=== PATIENT | male | born 1970 | race Hispanic/Latino ===

== ENCOUNTER 2023-10-24 05:39 | Emergency (ER) | payer OTHER, MEDICAID ==
[~2023-10-24] VITALS: Ht 165.1 cm; Wt 81.6 kg
[2023-10-24 06:16] VITALS: BP 131/79; PULSE 59; RESP 18; O2SAT 98
[2023-10-24] MEDS: IBUPROFEN 400 MG TABLET PO ONE (08:03)
[2023-10-24] MEDS: ACETAMINOPHEN 500 MG TABLET PO ONE (08:04)
== END 2023-10-24 09:45 | disposition home or self-care (01) ==
LOC: EDH 05:39
DX: M25.562 Pain in left knee (principal)
CPT/HCPCS: 73562

== ENCOUNTER 2023-10-28 01:34 | Emergency (ER) | payer OTHER, MEDICAID ==
[~2023-10-28] VITALS: Ht 170.2 cm; Wt 78.5 kg
[2023-10-28] MEDS ORDERED: 0.9%NACL 1000ML 1,000 ML IV ONE (03:00)
[2023-10-28 05:22] VITALS: BP 132/81; PULSE 88; RESP 16; O2SAT 99
[2023-10-28] MEDS: KETOROLAC 30MG VIAL (30MG/ML) IM ONE (05:40)
== END 2023-10-28 06:07 | disposition home or self-care (01) ==
LOC: EDH 01:34
DX: M25.562 Pain in left knee (principal); F32.A Depression, unspecified; Z98.890 Other specified postprocedural states
CPT/HCPCS: 99284; 71045; 73562; 96372; 93005; J1885; 96374

== ENCOUNTER 2023-10-29 01:43 | Emergency (ER) | payer OTHER, MEDICAID ==
[~2023-10-29] VITALS: Ht 170.2 cm; Wt 80.7 kg
[2023-10-29] MEDS: LACTATED RINGERS 1000ML 1,368 ML IV ONE (02:09)
[2023-10-29] MEDS: PROCHLORPERAZINE 10MG/2ML INJ IV ONE (02:10)
[2023-10-29] MEDS: DiphenhydrAMINE HCL 50 MG/ML VIAL IM ONE (02:10)
[2023-10-29] MEDS: KETOROLAC 30MG VIAL (30MG/ML) IM ONE (02:10)
[2023-10-29 03:26] VITALS: BP 138/64; PULSE 88; RESP 16; O2SAT 96
== END 2023-10-29 05:11 | disposition home or self-care (01) ==
LOC: EDH 01:43
DX: G43.909 Migraine, unspecified, not intractable, without status migrainosus (principal); F32.A Depression, unspecified
CPT/HCPCS: 99284; 96374; 96361; 96372 ×2; J7120; J1200; J0780; J1885

== ENCOUNTER 2023-12-17 16:00 | Emergency (ER) | payer OTHER, MEDICAID ==
[~2023-12-17] VITALS: Ht 170.2 cm; Wt 80.7 kg
--- NOTE | 2023-12-17 16:24 | HMCIMG ---
KNEE 3VWS LT REASON: PAIN TECHNIQUE: 3 views were obtained. FINDINGS: There is no evidence of fracture or dislocation. There is no joint effusion. The soft tissues appear unremarkable. There is no evidence of a radiopaque foreign body. IMPRESSION: No acute findings.
--- NOTE | 2023-12-17 16:45 | NUR ---
PT REMOVED HIS MONITORING EQUIPMENT
--- NOTE | 2023-12-17 18:40 | NUR ---
STILL PENDING DISPOSITION
--- NOTE | 2023-12-17 18:42 | ERN ---
ED Note History of Present Illness Stated Complaint: KNEE PAIN Chief Complaint: Knee Injury/Swelling Time Seen by MD: 16:05 Dictation: This 52-year-old male with chronic left knee pain activated EMS because of increased knee pain today. He states the pain comes and goes. He normally walks with a cane. He denies fever, redness or swelling, numbness or tingling. The pain is exacerbated by flexion extension. The patient is homeless. He denies cigarettes and alcohol Allergies: Coded Allergies: No Known Allergies (Unverified Allergy, Unknown, 10/24/23) Past Medical History Past Medical History: No Pertinent History Surgical History: None Surgical History Other: REPORTS CRANIOTOMY Review of System Dictation All pertinent systems reviewed, negative except as documented in the HPI The ROS is obtained from patient GENERAL/CONSTITUTIONAL: Negative except as documented in HPI. ENT: Negative except as documented in HPI. CARDIOVASCULAR: Negative except as documented in HPI. RESPIRATORY: Negative except as documented in HPI. GASTROINTESTINAL: Negative except as documented in HPI. GENITOURINARY: Negative except as documented in HPI. MUSCULOSKELETAL: Negative except as documented in HPI. SKIN: Negative except as documented in HPI. NEUROLOGIC: Negative except as documented in HPI. Initial Vital Sign VS Vital Signs Date Time Temp Pulse Resp B/P (MAP) Pulse Ox O2 Delivery O2 Flow Rate FiO2 12/17/23 16:01 98.2 102 19 145/91 97 Room Air 0 12/17/23 16:04 21 Physical Exam Dictation VITAL SIGNS: note is made of triage vital signs CONSTITUTIONAL: This is a comfortable patient who is sound asleep. I had to awaken him for the exam HEAD: Normocephalic, Atraumatic. RESPIRATORY: No respiratory distress ABDOMEN: Abdomen soft and nontender SKIN: Warm, dry, with normal turgor. Capillary refill less than 3 seconds. Normal color.No rash. No cellulitis or abscess. No evidence of acute injury. MS/Extremity: There is no calf tenderness. The patient's left knee is without redness, swelling or deformity. He has some mild pain with flexion. AP, PA lateral and medial stressing are normal.. There are no deformities. NEURO: The patient is sleepy but follows commands. He is moving all four extremities. PSYCH: Patient has been sleeping since arrival in the emergency department. Results (Laboratory/Radiology) X-RAY Comment: Institution : [facility] Accession No. : [id number] Patient : SAVANNAH LAWLER Creator : Urszula Mccain Dictator : Urszula Mccain Accountant Cost : Frame Coverer : URSZULA MCCAIN Approver2 : Study : KNEE 3VWS LT Study Date : 12/17/2023 15:54:38 Report Date : 12/17/2023 16:22:06 [facility] [address] [place] [address] IMAGING REPORT Signed PATIENT: NURIS NUÑEZ MR#: [id number] : 1970 SEX: M AGE: 52 LOCATION: [facility] ORDER 1610 STATUS: [facility] ER REPORT#: [id number] SERVICE 1609 REASON: PAIN ORDERING PHYSICIAN: SAMMY GOLD MD PROCEDURE: KNEE 3V LT - KNEE 3VWS LT KNEE 3VWS LT REASON: PAIN TECHNIQUE: 3 views were obtained. FINDINGS: There is no evidence of fracture or dislocation. There is no joint effusion. The soft tissues appear unremarkable. There is no evidence of a radiopaque foreign body. IMPRESSION: No acute findings. DICTATED BY: URSZULA MCCAIN MD DATE: 12/17/23 162 ELECTRONICALLY SIGNED BY: URSZULA MCCAIN MD DATE: 12/17/231623 ED Course ED Course Orders Procedure Category Date Status Time Knee 3vws Lt RAD 12/17/23 Resulted 16:09 Acetaminophen 500mg PHA 12/17/23 In Process Tab (Tylenol 500mg T 17:00 Lidocaine (Lidoderm PHA 12/17/23 In Process Patch 5%) 17:00 *Nursing CPOE 12/17/23 Transmitted Communication: 17:00 Current Medications Medications (Trade) Dose Ordered Sig/Liliana Route PRN Reason Start Time Stop Time Status Last Admin Dose Admin Acetaminophen (TYLenol 500MG TAB) 1,000 mg ONCE ONCE PO 12/17/23 17:00 12/17/23 17:01 Lidocaine (Lidoderm Patch 5%) 1 patch ONCE ONCE TP 12/17/23 17:00 12/17/23 17:01 Vital Signs Date Time Temp Pulse Resp B/P (MAP) Pulse Ox O2 Delivery O2 Flow Rate FiO2 12/17/23 17:11 86 16 146/87 97 Room Air* 0 21 12/17/23 16:04 98.2 102 19 145/91 97 Room Air* 0 21 12/17/23 16:01 98.2 102 19 145/91 97 Room Air 0 Medical Decision Making MDM INITIAL IMPRESSION Initial history and physical concerning for recurrent knee pain No evidence of infection or injury Contributing medical problems: None I have reviewed the triage nursing notes and vital signs. The patient is afebrile with acceptable oxygen saturation, heart rate and blood pressure. Initial plan: X-ray, Medication and discharge DATA REVIEW I have reviewed additional NN, repeat VS, and monitoring where indicated. Heart rate, blood pressure, and O2 saturation are acceptable. [place] diagnostic results: X-ray is negative for acute findings Other independent historian: none Review of external data: No recent ED visits ED COURSE Interventions: The patient received Tylenol and a Lidoderm patch. He has continued to sleep comfortably in the emergency department DISPOSITION Final diagnostic impression: Acute exacerbation of chronic knee pain without evidence of infection or acute trauma I discussed my findings, clinical impression and treatment recommendations with the patient. I have reviewed the social factors contributing to the patient's presentation and disposition planning. My final plan for disposition was made based upon clinical findings, response to treatment and discussion with the patient regarding management options. Hospitalization is not indicated due to low risk of short term progression, complication, morbidity or mortality related to the current diagnosis At the time of discharge, the vital signs are within acceptable limits. Repeat examination: No significant new changes. The discharge treatment plan includes recommendations for Dmitry wrap, Tylenol and Lidoderm patches Questions were invited and answered in layman's terms. I have emphasized my follow-up recommendations and reviewed ED return precautions. I have answered any questions in layman's terms. The patient understands that they will have to arrange for out-patient follow-up for recheck of today's condition. The patient is stable and appropriate for discharge from the ED. This dictation was prepared using [employer] voice recognition software. Occasional voice recognition errors may occur. When identified, these errors have been corrected. While every attempt is made to correct errors during dictation, errors may still exist. DX & DISP Disposition: Discharge Decision to Admit Date: Dec 17, 2023 Decision to Admit Time: 18:42 Departure Impression: Primary Impression: Knee pain Condition: Stable Additional Instructions: Use the Dmitry wrap to help stabilize your knee. Use [id number] Tylenol as needed for pain. You can use [id number] Lidoderm patches once a day if they are helpful. Follow up with family physician of your choice Referrals: SELF,REFERRAL (PCP) Time of Disposition: 18:42 SAMMY GOLD MD Dec 17, 2023 18:42
[2023-12-17] MEDS: LIDOCAINE 5% TOPICAL PATCH TP ONE (19:07)
[2023-12-17] MEDS: acetaMINOPHEN 500 MG TABLET PO ONE (19:09)
--- NOTE | 2023-12-17 19:14 | NUR ---
ALDAIR WRAP TO THE LEFT KNEE WITH LIDODERM PATCH BENEATH PER ED MD REQUEST.
--- NOTE | 2023-12-17 19:16 | NUR ---
REPORT TO LASHONDA JHA. PENDING D/C TO HOME BUT PT FROM [facility]
[2023-12-17 19:25] VITALS: BP 138/90; PULSE 79; RESP 18; TEMP 98.2; O2SAT 97
--- NOTE | 2023-12-17 19:28 | NUR ---
DISCHARGED AT THIS TIME.
== END 2023-12-17 19:28 | disposition home or self-care (01) ==
LOC: EDH 16:00
DX: M25.562 Pain in left knee (principal); Z98.890 Other specified postprocedural states; X58.XXXA Exposure to other specified factors, initial encounter; Y93.89 Activity, other specified; Y92.89 Other specified places as the place of occurrence of the external cause; Y99.8 Other external cause status
CPT/HCPCS: 73562

== ENCOUNTER 2023-12-21 19:56 | Emergency (ER) | payer OTHER, MEDICAID ==
[~2023-12-21] VITALS: Ht 170.2 cm; Wt 80.7 kg
[2023-12-21 20:20] LABS: BASOPHILS # (AUTO) 0.05 K/uL (0.00-0.20); BASOPHILS % (AUTO) 1.1 % (0.0-5.0); EOSINOPHILS # (AUTO) 0.35 K/uL (0.00-0.70); EOSINOPHILS % (AUTO) 7.9 % (0.0-8.0); HEMATOCRIT 43.4 % (42-54); IMMATURE GRANULOCYTE ABSOLUTE 0.01 K/uL (0-1); LYMPHOCYTES % (AUTO) 21.5 % (21.0-51.0); MEAN CORPUSCULAR HEMOGLOBIN 32.9 pg (27.0-33.0); MEAN CORPUSCULAR HGB CONC 35.7 g/dL (32.0-36.0); MEAN CORPUSCULAR VOLUME 92.1 fL (79-99); MONOCYTES # (AUTO) 0.5 K/uL (0.1-1.0); NEUTROPHILS # (AUTO) 2.5 K/uL (1.8-7.7); NEUTROPHILS % (AUTO) 57.3 % (40.0-77.0); PLATELET COUNT (AUTO) 112 K/uL (130-400); RED BLOOD CELL COUNT(AUTO) 4.71 MIL/uL (4.50-6.20); RED CELL DISTRIBUTION WIDTH 12.7 % (11.0-15.5); WHITE BLOOD COUNT (AUTO) 4.4 K/uL (4.8-10.8)
[2023-12-21 20:39] LABS: POTASSIUM 3.8 mmol/L (3.5-5.1)
[2023-12-21 20:50] VITALS: TEMP 98
[2023-12-21] MEDS: FAMOTIDINE 20MG VIAL IV ONE (21:01)
[2023-12-21] MEDS: 0.9%NACL 1000ML 1,000 ML IV ONE (21:02)
[2023-12-21] MEDS: INSULIN humuLIN R 100 UNIT/ML 3ML IV STA (21:03)
[2023-12-21] MEDS ORDERED: METF-446 PO (22:03)
[2023-12-21 23:02] VITALS: BP 141/85; PULSE 85; RESP 18; O2SAT 97
[2023-12-21] MEDS ORDERED: METF-527 PO (23:11)
== END 2023-12-21 23:13 | disposition home or self-care (01) ==
LOC: EDH 19:56
DX: R09.89 Other specified symptoms and signs involving the circulatory and respiratory systems (principal); E11.9 Type 2 diabetes mellitus without complications; R05.9 Cough, unspecified
CPT/HCPCS: 99284; 96374; 96361; 96375; 80048; 85025; 82948; 36415; J1815; J3490; J7030

== ENCOUNTER 2023-12-23 01:57 | Emergency (ER) | payer OTHER, MEDICAID ==
[~2023-12-23] VITALS: Ht 170.2 cm; Wt 76.2 kg
[~2023-12-23 01:57] MED LIST: METF-446 PO; METF-527 PO
[2023-12-23 03:03] VITALS: BP 134/75; PULSE 76; RESP 16; TEMP 98.6; O2SAT 95
[2023-12-23] MEDS ORDERED: ACET325C6 PO (16:27)
== END 2023-12-23 03:04 | disposition home or self-care (01) ==
LOC: EDH 01:57
DX: M25.561 Pain in right knee (principal); M25.562 Pain in left knee; Z79.84 Long term (current) use of oral hypoglycemic drugs; Z98.890 Other specified postprocedural states

== ENCOUNTER 2023-12-23 11:08 | Emergency (ER) | payer OTHER, MEDICAID ==
[~2023-12-23] VITALS: Ht 170.2 cm; Wt 76.2 kg
--- NOTE | 2023-12-23 11:23 | ERN ---
General Chief Complaint: Suicidal Ideation Stated Complaint: SI Time Seen by MD: 11:17 Time Seen by Midlevel: 11:17 Source: patient History of Present Illness Initial Comments Patient is a 53-year-old homeless male presenting to the ER for suicidal ideation. Patient was seen in our emergency department hours ago was discharged home. While in the lobby patient states he developed suicidal ideations. He states that his plan is to brought in front of a car. He denies any other sym ptoms at this time. Allergies: Coded Allergies: No Known Allergies (Unverified Allergy, Unknown, 10/24/23) Home Meds Active Scripts Acetaminophen (Tylenol) 325 Mg Capsule, 325 MG PO Q6HPRN PRN for HEADACHE for 5 Days, #20 CAP Prov:TAM LIVINGSTON 12/23/23 Metformin HCl (Metformin HCl ER) 1,000 Mg Tab.er.24, 1000 MG PO BID for 30 Days, #60 TAB Prov:DIONY JONES MD 12/21/23 Metformin HCl (Metformin HCl) 1,000 Mg Tablet, 1000 MG PO BID, #60 TAB Prov:HATTIE HERNANDEZ NP 12/21/23 Past Medical History Past Medical History: Diabetes-Type II Past Surgical History: None Surgical History Other: REPORTS CRANIOTOMY ROS Dictation CONSTITUTIONAL: Negative except for HPI HEAD/FACE: Negative except for HPI EENT: Negative except for HPI RESPIRATORY: Negative except for HPI GASTROINTESTINAL/ABDOMINAL: Negative except for HPI GENITOURINARY: Negative except for HPI MUSCULOSKELETAL: Negative except for HPI INTEGUMENTARY: Negative except for HPI NEUROLOGICAL/PSYCH: Negative except for HPI HEMATOLOGIC/LYMPHATIC: Negative except for HPI All Systems Negative, Except as noted above. 13 point review of systems assessed and all negative except for above. Physical Exam Physical Exam Dictation PHYSICAL EXAM: GENERAL: alert,, awake oriented x 3 HEENT: EOMI, Sclera non icteric, moist mucosa NECK: Supple, no JVD, trachea midline LUNGS: Clear breath sounds bilaterally. No wheezes HEART: Regular rate and rhythm. Normal S1 and S2, without murmurs ABD: Abdomen soft, nontender. Bowel sounds present EXT: No clubbing or cyanosis, NEURO: Alert and oriented to person, follows commands Results Laboratory and Microbiology Lab and Micro Result Laboratory Tests Test 12/23/23 11:26 12/23/23 12:32 White Blood Count 4.6 K/uL (4.8-10.8) L Red Blood Count 4.87 MIL/uL (4.50-6.20) Hemoglobin 15.9 g/dL (14.0-18.0) Hematocrit 44.9 % (42-54) Mean Corpuscular Volume 92.2 fL (79-99) Mean Corpuscular Hemoglobin 32.6 pg (27.0-33.0) Mean Corpuscular Hemoglobin Concent 35.4 g/dL (32.0-36.0) Red Cell Distribution Width 12.9 % (11.0-15.5) Platelet Count 120 K/uL (130-400) L Mean Platelet Volume 10.7 fL (7.5-10.5) H Immature Granulocyte % (Auto) 0.4 % (0-1) Neutrophils (%) (Auto) 60.0 % (40.0-77.0) Lymphocytes (%) (Auto) 16.5 % (21.0-51.0) L Monocytes (%) (Auto) 15.8 % (3.0-13.0) H Eosinophils (%) (Auto) 6.2 % (0.0-8.0) Basophils (%) (Auto) 1.1 % (0.0-5.0) Neutrophils # (Auto) 2.7 K/uL (1.8-7.7) Lymphocytes # (Auto) 0.8 K/uL (1.0-4.8) L Monocytes # (Auto) 0.7 K/uL (0.1-1.0) Eosinophils # (Auto) 0.28 K/uL (0.00-0.70) Basophils # (Auto) 0.05 K/uL (0.00-0.20) Absolute Immature Granulocyte (auto 0.02 K/uL (0-1) Nucleated Red Blood Cells 0.0 % (0.0-0.19) White Cell Morphology Comment See comments Sodium Level 131 mmol/L (136-145) L Potassium Level 4.1 mmol/L (3.5-5.1) Chloride Level 99 mmol/L (101-111) L Carbon Dioxide Level 31 mmol/L (21-32) Blood Urea Nitrogen 10 mg/dL (7-18) Creatinine 0.9 mg/dL (0.5-1.3) Glomerular Filtration Rate Calc 101 mL/min (>90) Random Glucose 204 mg/dL (70-105) H Total Calcium 9.4 mg/dL (8.5-10.1) Salicylates Level < 2.8 mg/dL (2.8-20.0) L Acetaminophen Level < 1 mcg/mL (10-29) L Serum Alcohol < 3 mg/dL (0-10) Urine Color YELLOW (YELLOW) Urine Appearance CLEAR (CLEAR) Urine pH 6.0 (5.0-8.0) Urine Specific [place] 1.021 (1.001-1.031) Urine Protein 70 mg/dL (NEGATIVE) H Urine Glucose (UA) 150 mg/dL (NEGATIVE) H Urine Ketones NEGATIVE mg/dL (NEGATIVE) Urine Occult Blood NEGATIVE (NEGATIVE) Urine Nitrate NEGATIVE (NEGATIVE) Urine Bilirubin NEGATIVE mg/dL (NEGATIVE) Urine Urobilinogen 0.2 mg/dL (0.2-1.0) Urine Leukocyte Esterase NEGATIVE Marcio/uL Urine RBC 0-1 /HPF (0-1) Urine WBC 0-1 /HPF (0-1) Urine Squamous Epithelial Cells RARE /HPF (0-2) Urine Bacteria None /HPF (None Seen) Urine Opiates Screen NEGATIVE (NEGATIVE) Urine Barbiturates Screen NEGATIVE (NEGATIVE) Urine Phencyclidine Screen NEGATIVE (NEGATIVE) Urine Amphetamines Screen NEGATIVE (NEGATIVE) Urine Benzodiazepines Screen NEGATIVE (NEGATIVE) Urine Cocaine Screen NEGATIVE (NEGATIVE) Urine Marijuana (THC) Screen POSITIVE (NEGATIVE) H Labs Reviewed?: Yes MDM MDM: Patient is a 53-year-old homeless male presenting to the ER for suicidal ideation. Patient was seen in our emergency department hours ago was discharged home. While in the [facility] patient states he developed suicidal ideations. He states that his plan is to brought in front of a car. He denies any other symptoms at this time. On physical examination patient is in no acute distress. His physical examination is reassuring. His blood work is stable. Patient was medically cleared and [facility] was called. Patient was screened and does not meet criteria for inpatient psychiatric admission. Patient will be discharged home. Return precautions discussed Differential diagnosis: Suicidal ideation, psychiatric problem, homelessness, malingering There are no social concerns with this patient. Prescription drug management Prescriptions will include: None Medical management and examination interpretation discussions were had by me with other qualified healthcare professionals as indicated for the patient's care. ED Course Orders Procedure Category Date Status Time Cbc With Differential LAB 12/23/23 Complete 11:17 Alcohol, Blood LAB 12/23/23 Complete 11:17 Salicylate LAB 12/23/23 Complete 11:17 Acetaminophen LAB 12/23/23 Complete 11:17 Urinalysis Profile LAB 12/23/23 Complete 11:17 Basic Metabolic Panel LAB 12/23/23 Complete 11:17 Drug Screen Urine LAB 12/23/23 Complete 11:17 Vital Signs Date Time Temp Pulse Resp B/P (MAP) Pulse Ox O2 Delivery O2 Flow Rate FiO2 12/23/23 15:54 98.4 78 14 132/78 98 Room Air* 0 21 12/23/23 11:10 98.8 91 18 160/98 96 Room Air DX & DISP Disposition: Discharge Departure Impression: Primary Impression: Psychiatric problem Condition: Stable Additional Instructions: You were screened by [facility] and do not meet criteria for inpatient hospitalization. Please follow up with your PCP in 2-3 days for repeat evaluation. Return to the Ed for any new or worsening symptoms. Referrals: SELF,REFERRAL (PCP) Time of Disposition: 15:48 I have reviewed the case, and I agree with I performed this substantive portion of this visit. I have reviewed and personally made and approve the management plan that is documented in the note by myself or the BETO. I acknowledge full responsibility for the patient's management plan. TAM LIVINGSTON Dec 23, 2023 11:23 CARLOS FLORES MD Jan 27, 2024 14:43
[2023-12-23 11:35] LABS: BASOPHILS # (AUTO) 0.05 K/uL (0.00-0.20); BASOPHILS % (AUTO) 1.1 % (0.0-5.0); EOSINOPHILS # (AUTO) 0.28 K/uL (0.00-0.70); EOSINOPHILS % (AUTO) 6.2 % (0.0-8.0); HEMATOCRIT 44.9 % (42-54); IMMATURE GRANULOCYTE ABSOLUTE 0.02 K/uL (0-1); LYMPHOCYTES # (AUTO) 0.8 K/uL (1.0-4.8); LYMPHOCYTES % (AUTO) 16.5 % (21.0-51.0); MEAN CORPUSCULAR HEMOGLOBIN 32.6 pg (27.0-33.0); MEAN CORPUSCULAR HGB CONC 35.4 g/dL (32.0-36.0); MEAN CORPUSCULAR VOLUME 92.2 fL (79-99); MONOCYTES # (AUTO) 0.7 K/uL (0.1-1.0); MONOCYTES % (AUTO) 15.8 % (3.0-13.0); NEUTROPHILS # (AUTO) 2.7 K/uL (1.8-7.7); PLATELET COUNT (AUTO) 120 K/uL (130-400); RED BLOOD CELL COUNT(AUTO) 4.87 MIL/uL (4.50-6.20); RED CELL DISTRIBUTION WIDTH 12.9 % (11.0-15.5); WHITE BLOOD COUNT (AUTO) 4.6 K/uL (4.8-10.8)
[2023-12-23 11:44] LABS: CARBON DIOXIDE 31 mmol/L (21-32); CHLORIDE 99 mmol/L (101-111); CREATININE 0.9 mg/dL (0.5-1.3); GLOMERULAR FILTR. RATE CALC 101 mL/min (>90); GLUCOSE,RANDOM 204 mg/dL (70-105); POTASSIUM 4.1 mmol/L (3.5-5.1); SODIUM SERUM 131 mmol/L (136-145); UREA NITROGEN, BLOOD 10 mg/dL (7-18)
[2023-12-23 11:47] LABS: ALCOHOL, BLOOD < 3 mg/dL (0-10)
[2023-12-23 11:48] LABS: ACETAMINOPHEN < 1 mcg/mL (10-29); SALICYLATE < 2.8 mg/dL (2.8-20.0)
[2023-12-23 13:17] LABS: AMPHET/METH SCREEN,URINE NEGATIVE (NEGATIVE); BARBITURATE SCREEN, URINE NEGATIVE (NEGATIVE); BENZODIAZEPINES SCREEN,URINE NEGATIVE (NEGATIVE); CANNABINOID SCREEN,URINE POSITIVE (NEGATIVE); COCAINE SCREEN,URINE NEGATIVE (NEGATIVE); OPIATE SCREEN,URINE NEGATIVE (NEGATIVE); PHENCYCLIDINE SCREEN,URINE NEGATIVE (NEGATIVE)
[2023-12-23 13:31] LABS: APPEARANCE,URINE CLEAR (CLEAR); BILIRUBIN,URINE NEGATIVE (NEGATIVE); COLOR,URINE YELLOW (YELLOW); GLUCOSE, URINE (UA) 150 mg/dL (NEGATIVE); KETONES,URINE NEGATIVE (NEGATIVE); LEUKOCYTE ESTERASE ,URINE NEGATIVE Leu/uL (NEGATIVE); NITRATE,URINE NEGATIVE (NEGATIVE); OCCULT BLOOD,URINE NEGATIVE (NEGATIVE); PROTEIN,URINE 70 mg/dL (NEGATIVE); UROBILINOGEN,URINE 0.2 mg/dL (0.2-1.0)
[2023-12-23 13:32] LABS: ADD UA MICROSCOPIC YES
[2023-12-23 13:34] LABS: MUCUS,URINE RARE LPF (None Seen); RBC,URINE 0-1 /HPF (0-1); SQUAMOUS EPITHELIAL CELL,UR RARE /HPF (0-2); WBC,URINE 0-1 /HPF (0-1)
--- NOTE | 2023-12-23 13:47 | NUR ---
[facility] WAS CALLED FOR SCREENING.
--- NOTE | 2023-12-23 14:34 | NUR ---
[facility] [place] IN TO SEE PT
[2023-12-23 15:54] VITALS: BP 132/78; PULSE 78; RESP 14; TEMP 98.5; O2SAT 98
[2023-12-23] MEDS ORDERED: ACET325C6 PO (16:27)
== END 2023-12-23 15:56 | disposition home or self-care (01) ==
LOC: EDH 11:08
DX: F99 Mental disorder, not otherwise specified (principal); E11.9 Type 2 diabetes mellitus without complications; Z79.84 Long term (current) use of oral hypoglycemic drugs; Z98.890 Other specified postprocedural states
CPT/HCPCS: 99283; 80048; 80305; 85025; 36415; 81001; G0481

== ENCOUNTER 2023-12-23 16:21 | Emergency (ER) | payer OTHER, MEDICAID ==
[~2023-12-23] VITALS: Ht 170.2 cm; Wt 79.4 kg
[2023-12-23] MEDS ORDERED: ACET325C6 PO (16:27)
--- NOTE | 2023-12-23 16:27 | ERN ---
General Chief Complaint: Headache Stated Complaint: HEADACHE Time Seen by MD: 16:26 Time Seen by Midlevel: 16:26 Source: patient History of Present Illness Initial Comments Patient is a 53-year-old homeless male presenting to the ER for evaluation of headache that according to the patient has been going on for many years. Patient was seen in our emergency department2 times in the last12 hours. He was seen lead nuclear medicine technologist in our ER and was discharged home however he remained in the lobby. He then reports becoming suicidal so he decided to sign it again where he was screened by [facility] and did not meet criteria for inpatient psychiatric care so he was discharged from the hospital. As soon as he was discharged from the hospital he decided to sign into the hospital again stating he had a headache. Patient has no other complaint at this time. Allergies: Coded Allergies: No Known Allergies (Unverified Allergy, Unknown, 10/24/23) Home Meds Active Scripts Acetaminophen (Tylenol) 325 Mg Capsule, 325 MG PO Q6HPRN PRN for HEADACHE for 5 Days, #20 CAP Prov:TAM LIVINGSTON 12/23/23 Metformin HCl (Metformin HCl ER) 1,000 Mg Tab.er.24, 1000 MG PO BID for 30 Days, #60 TAB Prov:DIONY JONES MD 12/21/23 Metformin HCl (Metformin HCl) 1,000 Mg Tablet, 1000 MG PO BID, #60 TAB Prov:HATTIE HERNANDEZ NP 12/21/23 Past Medical History Past Medical History: Diabetes-Type II Past Surgical History: None Surgical History Other: REPORTS CRANIOTOMY ROS Dictation CONSTITUTIONAL: Negative except for HPI HEAD/FACE: Negative except for HPI EENT: Negative except for HPI RESPIRATORY: Negative except for HPI GASTROINTESTINAL/ABDOMINAL: Negative except for HPI GENITOURINARY: Negative except for HPI MUSCULOSKELETAL: Negative except for HPI INTEGUMENTARY: Negative except for HPI NEUROLOGICAL/PSYCH: Negative except for HPI HEMATOLOGIC/LYMPHATIC: Negative except for HPI All Systems Negative, Except as noted above. 13 point review of systems assessed and all negative except for above. Physical Exam Physical Exam Dictation Vital Signs reviewed General Appearance: Alert, oriented x 3, no acute distress Head and Face: non-traumatic. Eyes: PERRL, pink conjunctivas, eyelid no trauma, anterior chamber with arcus senilis. Ears: Pinnas intact and no signs of trauma or erythema ear canals clear and no discharge TM no erythema Nose: No discharge, no bleeding. Oropharynx: Mouth normal, tongue pink, pharynx clear,no erythema, tonsils no exudates, no abscesses noted, mucous membrane moist Neck: Supple, non-tender, no thyromegaly, no masses, no JVD, no bruits Breast:Deferred Chest:No tenderness, no crepitus, no paradoxical movement, no retractions Lungs:Clear, well-ventilated, symmetric, no rales, no wheezing, no rhonchi, no stridor, good breath sounds bilaterally Heart: Regular rate, regular rhythm, no murmur, no gallops Vascular: no peripheral edema, Abdomen: Soft, positive bowel sounds, nondistended, no guarding, nontender, no rebound, no masses no hepatomegaly, no splenomegaly, no Licona's sign, no hernias. Rectal: Deferred Genital: Deferred Neurological: Normal speech, motor function intact, sensory function intact Musculoskeletal: Neck nontender, full range of motion, back nontender, full range of motion, Extremities: nontender, full range of motion Skin: Color pink, dry, no turgor, no rash, no lacerations, no abrasions, no contusions. Lymphatic: Deferred MDM MDM: Patient is a 53-year-old homeless male presenting to the ER for evaluation of headache that according to the patient has been going on for many years. Patient was seen in our emergency department2 times in the last12 hours. He was seen lead nuclear medicine technologist in our ER and was discharged home however he remained in the lobby. He then reports becoming suicidal so he decided to sign it again where he was screened by [facility] and did not meet criteria for inpatient psychiatric care so he was discharged from the hospital. As soon as he was discharged from the hospital he decided to sign into the hospital again stating he had a headache. Patient has no other complaint at this time. On physical examination patient is in no acute distress. He is ambulatory without assistance with a normal gait. His neurological examination is unremarkable. Patient has no cranial nerve deficits. He specifically denies any vision changes, nausea, vomiting, or any other symptoms at this time. His initial vital signs are stable. No need for advanced imaging or labs at this time since patient has already been seen in the ER3 times in less than 12 hours. Patient will be discharged home with a prescription for Tylenol. He does state he has a primary care doctor and was advised to follow up with him or to return to the ER for any new or worsening symptoms. Patient will be discharged home and all of his questions were answered Differential diagnosis: Malingering, tension headache, drug-seeking There are no social concerns with this patient. Prescription drug management Prescriptions will include: Tylenol Medical management and examination interpretation discussions were had by me with other qualified healthcare professionals as indicated for the patient's care. ED Course Vital Signs Date Time Temp Pulse Resp B/P (MAP) Pulse Ox O2 Delivery O2 Flow Rate FiO2 12/23/23 16:29 98.8 95 20 148/78 97 Room Air* 0 21 12/23/23 16:23 98.8 107 20 150/98 97 Room Air 0 DX & DISP Disposition: Discharge Departure Impression: Primary Impression: Headache Additional Impression: Malingering Condition: Stable Scripts Acetaminophen (Tylenol) 325 Mg Capsule 325 MG PO Q6HPRN PRN for HEADACHE for 5 Days, #20 CAP Prov: TAM LIVINGSTON 12/23/23 Referrals: SELF,REFERRAL (PCP) Time of Disposition: 16:26 I have reviewed the case, and I agree with, Diagnosis and Plan TAM LIVINGSTON Dec 23, 2023 16:27
[2023-12-23 16:29] VITALS: BP 148/78; PULSE 95; RESP 20; TEMP 98.8; O2SAT 97
--- NOTE | 2023-12-23 16:32 | NUR ---
PATIENT JUST DISCHARGED AND SCREENED BY [facility] FOR SUCIDIAL IDEATIONS AND DID NOT MEET CRITERIA. PATIENT CURRENTLY NOT VOICING ANY SUCIDIAL IDEATIONS. PATIENT TO BE DISCHARGED WITH PRESCRIPTION FOR MEDICATION FOR HEADACHE.
== END 2023-12-23 16:41 | disposition home or self-care (01) ==
LOC: EDH 16:21
DX: R51.9 Headache, unspecified (principal); E11.9 Type 2 diabetes mellitus without complications; Z59.00 Homelessness unspecified; Z79.84 Long term (current) use of oral hypoglycemic drugs; Z98.890 Other specified postprocedural states; Z76.5 Malingerer [conscious simulation]
CPT/HCPCS: 99282

== ENCOUNTER 2023-12-24 09:15 | Emergency (ER) | payer OTHER, MEDICAID ==
[~2023-12-24 09:15] MED LIST changes: +ACET325C6 PO
[2023-12-24 09:17] VITALS: BP 148/111
[2023-12-24 10:59] VITALS: PULSE 78; RESP 18; TEMP 98.5; O2SAT 98
== END 2023-12-24 11:22 | disposition home or self-care (01) ==
LOC: EDH 09:15
DX: M25.562 Pain in left knee (principal); M25.561 Pain in right knee; G43.909 Migraine, unspecified, not intractable, without status migrainosus; Z59.00 Homelessness unspecified; Z79.84 Long term (current) use of oral hypoglycemic drugs; Z98.890 Other specified postprocedural states